=== PATIENT | female | born 1950 | race Caucasian/White ===

== ENCOUNTER 2017-08-01 11:53 | Emergency (ER) | payer BC ==
[2017-08-01 12:46] VITALS: BP 157/57
--- NOTE | 2017-08-01 13:36 | UC ---
Hand/Wrist HPI - HPI Summary HPI Summary: Fell off ladder last night and injured ivelisse hand- - History Of Current Complaint Chief Complaint: UCUpperExtremity Stated Complaint: RIGHT HAND INJURY/FALL Time Seen by Provider: 08/01/17 13:35 Hx Obtained From: Patient ?: No Mechanism Of Injury: fall Onset/Duration: Sudden Onset Severity Initially: Moderate Severity Currently: Moderate Pain Intensity: 5 Pain Scale Used: 0-10 Numeric Character Of Pain: Aching, Throbbing Aggravating Factor(s): Movement Alleviating Factor(s): Rest, Ice Associated Signs And Symptoms: Positive: Swelling, Bruising Related History: Dominant Hand Right - Allergies/Home Medications Allergies/Adverse Reactions: Allergies Allergy/AdvReac Type Severity Reaction Status Date / Time Morphine Allergy Unknown Unknown Verified 08/01/17 12:36 Reaction Details Sulfa Antibiotics Allergy Unknown Unknown Verified 08/01/17 12:36 Reaction Details Tetracycline Allergy Unknown Unknown Verified 08/01/17 12:36 Reaction Details Cephalexin Allergy Swelling Verified 08/01/17 12:37 Home Medications: Home Medications Ibuprofen TAB* [Advil TAB*] 800 mg PO Q6H PRN 08/01/17 [History Confirmed ] PMH/Surg Hx/FS Hx/Imm Hx Previously Healthy: No Cardiovascular History: Cardiac Disease, Hypertension - Surgical History Surgical History: Yes Surgery Procedure, Year, and Place: "some of intestines removed d/t blockage" - Family History Known Family History: Positive: None - Social History Occupation: Employed Full-time Lives: With Family Alcohol Use: Occasionally Substance Use Type: None Smoking Status (MU): Former Smoker Type: Cigarettes Have You Smoked in the Last Year: No When Did the Patient Quit Smoking/Using Tobacco: 15 yrs ago - Immunization History Most Recent Influenza Vaccination: no Review of Systems Constitutional: Negative Skin: Negative Eyes: Negative ENT: Negative Respiratory: Negative Cardiovascular: Negative Gastrointestinal: Negative Genitourinary: Negative Motor: Negative Neurovascular: Negative Musculoskeletal: Negative, Arthralgia - right hand, Edema - right hand with bruising Neurological: Negative Psychological: Negative Is Patient Immunocompromised?: No All Other Systems Reviewed And Are Negative: Yes Physical Exam Triage Information Reviewed: Yes Appearance: Well-Appearing, No Pain Distress - mild, Thin Vital Signs: Initial Vital Signs Temp 98.2 F 08/01/17 12:29 Pulse 67 08/01/17 12:29 Resp 16 08/01/17 12:29 BP 157/57 08/01/17 12:29 Pulse Ox 100 08/01/17 12:29 Vital Signs Reviewed: Yes Eye Exam: Normal Eyes: Positive: Conjunctiva Clear ENT Exam: Normal ENT: Positive: Normal ENT inspection, Hearing grossly normal. Negative: Nasal congestion, Nasal drainage, Trismus, Muffled/hoarse voice Dental Exam: Normal Neck exam: Normal Neck: Positive: Supple, Nontender Respiratory Exam: Normal Respiratory: Positive: Chest non-tender, No respiratory distress, No accessory muscle use Cardiovascular Exam: Normal Cardiovascular: Positive: RRR, Pulses Normal, Brisk Capillary Refill Musculoskeletal Exam: Other Musculoskeletal: Positive: Strength Intact, ROM Intact, Edema @ - back of right hand Neurological Exam: Normal Neurological: Positive: Alert, Muscle Tone Normal Psychological Exam: Normal Skin Exam: Normal Diagnostics - Radiology No standard instances Xray Interpretation: No Acute Changes Radiology Interpretation Completed By: Radiologist Hand/Wrist Course/Dx - Course Course Of Treatment: dhiraj wrap, cockup splint, ice ibuprofen follow with ortho prn - Differential Dx/Diagnosis Differential Diagnosis/HQI/PQRI: Contusion, Fracture Provider Diagnoses: Right hand contusion Discharge - Discharge Plan Condition: Stable Disposition: HOME Patient Education Materials: Contusion in Adults (ED), Hypertension (ED), Ice Pack Application (ED), Arthritis (ED) Forms: *Work Release Referrals: Luz Perez PA [Primary Care Provider] - If Needed
--- NOTE | 2017-08-01 14:20 | RAD ---
HISTORY: Fall on outstretched hand, right hand COMPARISONS: None VIEWS: 4, Frontal, lateral, and oblique views of the right hand FINDINGS: BONE DENSITY: There is diffuse osteopenia. BONES: There is no displaced fracture. JOINTS: There is osteoarthritis of the first CMC joint. ALIGNMENT: There is no dislocation. SOFT TISSUES: Unremarkable. OTHER FINDINGS: None. IMPRESSION: 1. OSTEOPENIA. 2. OSTEOARTHRITIS. 3. NO ACUTE OSSEOUS INJURY. IF SYMPTOMS PERSIST, RECOMMEND REPEAT IMAGING.
== END 2017-08-01 14:35 | disposition home or self-care (01) ==
LOC: UCCORT 11:53
DX: S60.221A Contusion of right hand, initial encounter (principal); I10 Essential (primary) hypertension; W11.XXXA Fall on and from ladder, initial encounter; Z87.891 Personal history of nicotine dependence; Z88.5 Allergy status to narcotic agent; Z88.2 Allergy status to sulfonamides; Z88.1 Allergy status to other antibiotic agents
CPT/HCPCS: 99213; G0463

== ENCOUNTER 2018-04-06 14:23 | Emergency (ER) | payer BC, OTHER ==
[2018-04-06 14:56] VITALS: BP 140/64
--- NOTE | 2018-04-06 15:17 | UC ---
General HPI - HPI Summary HPI Summary: Pleasant 68 yo female c/o R chest wall and R shoulder pain since yesterday, s/p trauma. She was moving a couch at work, the couched slipped and she ended up hitting her chest and shoulder against the top of the couch. Was able to finish the work day, but was in pain. Yesterday took both ibuprofen and naproxen, with some alleviation. Today she went to work, but was told by employer to get medical check before returning to work, since still c/o pain. Has been taking naproxen and ibuprofen today. Has been undergoing cardiopulmonary workup on outpt basis. Has been seen by physicians in [facility], and [facility]. Pain had been in L chest, but this is not the case now. Current pain is different than that for which she is undergoing w/u. Does not have that pain now or since injury yesterday. No rash. No GI concerns. No neck pain. No other site of injury. Denies kidney / renal problems or GI ulcers. - History of Current Complaint Chief Complaint: UCUpperExtremity Stated Complaint: WC-RT SHOULDER/CHEST INJURY Time Seen by Provider: 04/06/18 15:07 Hx Obtained From: Patient Pain Intensity: 0 - Allergy/Home Medications Allergies/Adverse Reactions: Allergies Allergy/AdvReac Type Severity Reaction Status Date / Time morphine Allergy Severe Swelling Verified 03/28/18 14:12 Of Face,Lips,& Throat Sulfa (Sulfonamide Allergy Severe Swelling Verified 03/28/18 14:12 Antibiotics) Of Face,Lips,& Throat Tetracyclines Allergy Severe Swelling Verified 03/28/18 14:12 Of Face,Lips,& Throat cephalexin [From Keflex] Allergy Unknown See Comment Verified 03/28/18 14:23 diclofenac Allergy Unknown Shortness Verified 03/28/18 14:23 of Breath meloxicam Allergy Unknown See Comment Verified 03/28/18 14:23 Influenza Virus Vaccines Allergy Anaphylatic Verified 04/06/18 14:51 Shock permethrin Allergy Hives Verified 03/28/18 14:23 PMH/Surg Hx/FS Hx/Imm Hx Cardiovascular History: Other - see hpi. Other Cardiovascular History: see above - Surgical History Surgical History: Yes Surgery Procedure, Year, and Place: COLON RESECTION. TUBAL LIGATION/ REMOVAL OF FALLOPIAN TUBES. BILATERAL CATARACTS. ANGIOGRAPHY - Family History Known Family History: Positive: None - Social History Alcohol Use: Occasionally Substance Use Type: None Smoking Status (MU): Former Smoker Type: Cigarettes Have You Smoked in the Last Year: No When Did the Patient Quit Smoking/Using Tobacco: 15 yrs ago - Immunization History Most Recent Influenza Vaccination: no Review of Systems Constitutional: Negative Skin: Negative - no report of external bruise Eyes: Negative ENT: Negative Respiratory: Other - see hpi Cardiovascular: Other - see hpi Gastrointestinal: Negative Genitourinary: Negative Motor: Other - see hpi Neurovascular: Negative Musculoskeletal: Arthralgia Neurological: Negative Psychological: Negative Is Patient Immunocompromised?: No All Other Systems Reviewed And Are Negative: Yes Physical Exam Triage Information Reviewed: Yes Appearance: Well-Appearing - sitting up in chair, nad. conversing in full sentances, Well-Nourished Vital Signs: Initial Vital Signs Temp 97.3 F 04/06/18 14:45 Pulse 75 04/06/18 14:45 Resp 19 04/06/18 14:45 BP 140/64 04/06/18 14:45 Pulse Ox 97 04/06/18 14:45 Vital Signs Reviewed: Yes Eye Exam: Normal - grossly normal ENT Exam: Normal Neck exam: Normal Neck: Positive: Supple, Nontender Respiratory Exam: Other - see muscleskel below Respiratory: Positive: Lungs clear, Normal breath sounds, No respiratory distress, No accessory muscle use Cardiovascular: Positive: RRR, Pulses Normal, Brisk Capillary Refill Abdominal Exam: Normal Abdomen Description: Positive: Nontender Musculoskeletal Exam: Other - Tender R ant lat chest wall and R post>ant shoulder. No point bony tenderness appreciate. Ant chest wall muscle (pect) tender. No tania eccymoses. No crepitus. FROM R shoulder, although hesitation with flex / adduction. Ax n sens present LT. Elbow / neck without complaints. Neurological Exam: Normal - grossly nonfocal Psychological Exam: Normal - conversing easily and appropriately Skin Exam: Normal - no visible or reported eccymosis or rash. Course/Dx - Course Course Of Treatment: Reviewed CXR / R shoulder Xray with pt. (results in [employer]). Reviewed coa / tx plan. Ms. Herbert is adamant that she does not have an allergy or problem with either naproxen or ibuprofen (I note "allergy" in [employer]); indeed she has been taking both since yesterday. Denies hx renal problems. Will f/u pcp, next week as planned (after pulm testing). Albeit reluctant, will take the next couple days off of work (which is strenuous). Declines sling. Questions as posed answered to the best of my ability. - Differential Dx - Multi-Symptom Provider Diagnoses: R chest wall and shoulder contusion. R shoulder sprain Discharge - Sign-Out/Discharge Documenting (check all that apply): Discharge/Admit/Transfer - Discharge Plan Condition: Stable Disposition: HOME Prescriptions: Naproxen [Naproxen 500 mg tab] 500 mg PO Q12H PRN #20 tablet.dr QUILES Reason: Pain Patient Education Materials: Sprain (ED), Rib Contusion (ED) Forms: *Work Release Referrals: uLz Perez PA [Primary Care Provider] - - Billing Disposition and Condition Condition: STABLE Disposition: Home
--- NOTE | 2018-04-06 16:06 | RAD ---
INDICATION: Chest pain COMPARISON: Chest x-ray September 10, 2017 TECHNIQUE: PA and lateral dual-energy views were obtained. FINDINGS: Bones/Soft Tissues: There is osteopenia with mild kyphoscoliosis. Cardiomediastinal: The cardiomediastinal silhouette is normal. Lungs: There are no infiltrates. Pleura: There are no pleural effusions. Other: None IMPRESSION: NO ACTIVE DISEASE.
--- NOTE | 2018-04-06 16:07 | RAD ---
Indication: RIGHT shoulder pain following injury. Comparison: No relevant prior exams available on the [facility] for comparison. Technique: Internal rotation AP, external rotation Grashey, scapular Y, moderate axillary views RIGHT shoulder Report: Normal acromioclavicular and glenohumeral joint alignment. Negative for fracture. No significant arthropathic change evident. Bone density appears decreased throughout. Unremarkable soft tissue contours. IMPRESSION: Negative for fracture or articular malalignment.
== END 2018-04-06 16:32 | disposition home or self-care (01) ==
LOC: UCCORT 14:23
DX: S20.211A Contusion of right front wall of thorax, initial encounter (principal); S40.011A Contusion of right shoulder, initial encounter; S43.401A Unspecified sprain of right shoulder joint, initial encounter; Z88.5 Allergy status to narcotic agent; Z88.2 Allergy status to sulfonamides; Z88.1 Allergy status to other antibiotic agents; Z88.7 Allergy status to serum and vaccine; Z88.8 Allergy status to other drugs, medicaments and biological substances; Z87.891 Personal history of nicotine dependence; W01.190A Fall on same level from slipping, tripping and stumbling with subsequent striking against furniture, initial encounter; Y92.9 Unspecified place or not applicable
CPT/HCPCS: 71046; 99212; G0463

== ENCOUNTER 2019-03-07 12:49 | Emergency (ER) | payer BC ==
[2019-03-07 13:14] VITALS: BP 160/80
--- NOTE | 2019-03-07 13:48 | UC ---
Respiratory Complaint HPI - HPI Summary HPI Summary: cough x 3 weeks cough is productive with yellow sputum chest congestion , pnd, worse with deep breathing, better with rest, no fever, + chills, + sob , no chest pain ,no palpitation - History of Current Complaint Chief Complaint: UCRespiratory Stated Complaint: SOB Time Seen by Provider: 03/07/19 13:07 Hx Obtained From: Patient Onset/Duration: Gradual Onset, Lasting Weeks - 3, Still Present Timing: Constant Severity Initially: Moderate Severity Currently: Moderate Pain Intensity: 6 Character: Cough: Productive Aggravating Factors: Exertion, Deep Breaths Alleviating Factors: Bronchodilator Associated Signs And Symptoms: Positive: Dyspnea, Wheezing, URI, Nasal Congestion. Negative: Fever, Chills, Pleuritic Chest Pain, Hemoptysis - Allergies/Home Medications Allergies/Adverse Reactions: Allergies Allergy/AdvReac Type Severity Reaction Status Date / Time morphine Allergy Severe Swelling Verified 03/07/19 13:13 Of Face,Lips,& Throat Sulfa (Sulfonamide Allergy Severe Swelling Verified 03/07/19 13:13 Antibiotics) Of Face,Lips,& Throat Tetracyclines Allergy Severe Swelling Verified 03/07/19 13:13 Of Face,Lips,& Throat cephalexin [From Keflex] Allergy Unknown See Comment Verified 03/07/19 13:13 diclofenac Allergy Unknown Shortness Verified 03/07/19 13:13 of Breath meloxicam Allergy Unknown See Comment Verified 03/07/19 13:13 Influenza Virus Vaccines Allergy Anaphylatic Verified 03/07/19 13:13 Shock permethrin Allergy Hives Verified 03/07/19 13:13 Home Medications: Home Medications Escitalopram * [Lexapro *] 5 mg PO DAILY 03/07/19 [History Confirmed 03/07/19] PMH/Surg Hx/FS Hx/Imm Hx - Additional Past Medical History Additional PMH: alpha 1 deficiency stroke Cardiovascular History: Cardiac Disease Respiratory History: COPD, Asthma Neurological History: CVA - Surgical History Surgical History: Yes Surgery Procedure, Year, and Place: COLON RESECTION. TUBAL LIGATION/ REMOVAL OF FALLOPIAN TUBES. BILATERAL CATARACTS. ANGIOGRAPHY - Family History Known Family History: Positive: None - Social History Alcohol Use: Occasionally Substance Use Type: None Smoking Status (MU): Former Smoker Type: Cigarettes Have You Smoked in the Last Year: No When Did the Patient Quit Smoking/Using Tobacco: 15 yrs ago - Immunization History Most Recent Influenza Vaccination: no Review of Systems All Other Systems Reviewed And Are Negative: Yes Constitutional: Positive: Fatigue Skin: Positive: Negative Eyes: Positive: Negative ENT: Positive: Nasal Discharge Respiratory: Positive: Shortness Of Breath, Cough Cardiovascular: Positive: Negative Gastrointestinal: Positive: Negative Is Patient Immunocompromised?: No Physical Exam Triage Information Reviewed: Yes Appearance: Well-Appearing, No Pain Distress, Well-Nourished Vital Signs: Initial Vital Signs Temp 98.1 F 03/07/19 13:09 Pulse 64 03/07/19 13:09 Resp 20 03/07/19 13:09 BP 160/80 03/07/19 13:09 Pulse Ox 100 03/07/19 13:09 Vital Signs Reviewed: Yes Eye Exam: Normal Eyes: Positive: Conjunctiva Clear ENT: Positive: Normal ENT inspection, Hearing grossly normal, Pharynx normal, Nasal congestion Neck: Positive: Supple, Nontender, No Lymphadenopathy Respiratory: Positive: Chest non-tender, Lungs clear, Normal breath sounds, No respiratory distress Cardiovascular: Positive: RRR, No Murmur, Pulses Normal Abdominal Exam: Normal Skin Exam: Normal Diagnostics - Radiology No standard instances Radiology Interpretation Completed By: Radiologist Summary of Radiographic Findings: chest xray : IMPRESSION: NO ACTIVE CARDIOPULMONARY DISEASE. Respiratory Course/Dx - Differential Dx/Diagnosis Provider Diagnosis: Acute bronchitis Discharge - Sign-Out/Discharge Documenting (check all that apply): Patient Departure All imaging exams completed and their final reports reviewed: Yes - Discharge Plan Condition: Stable Disposition: HOME Prescriptions: Amoxicillin/Clavulanate TAB* [Augmentin TAB 875*] 875 mg PO BID #20 tab predniSONE TAB* [Deltasone 20 MG TAB*] 40 mg PO DAILY #10 tab Patient Education Materials: Acute Bronchitis (ED) Referrals: Luz Perez PA [Primary Care Provider] - - Billing Disposition and Condition Condition: STABLE Disposition: Home
== END 2019-03-07 13:50 | disposition home or self-care (01) ==
LOC: UCCORT 12:49
DX: J20.9 Acute bronchitis, unspecified (principal); E88.01 Alpha-1-antitrypsin deficiency; I51.9 Heart disease, unspecified; J44.9 Chronic obstructive pulmonary disease, unspecified; Z88.5 Allergy status to narcotic agent; Z88.2 Allergy status to sulfonamides; Z88.1 Allergy status to other antibiotic agents; Z88.8 Allergy status to other drugs, medicaments and biological substances; Z87.891 Personal history of nicotine dependence; Z86.73 Personal history of transient ischemic attack (TIA), and cerebral infarction without residual deficits
CPT/HCPCS: 71046; 99212; G0463

== ENCOUNTER 2019-04-23 12:31 | Emergency (ER) | payer BC ==
[2019-04-23 14:14] VITALS: BP 146/73
--- NOTE | 2019-04-23 14:15 | UC ---
General HPI - HPI Summary HPI Summary: pt states she fell down her 3 basement steps. she is c/o pain to her L shoulder and upper arm where she hit the wall and L ankle. no loc, head injury, neck or back pain. she denies any other injuries. - History of Current Complaint Stated Complaint: LEFT ANKLE/SHOULDER INJ Time Seen by Provider: 04/23/19 14:01 Hx Obtained From: Patient Onset/Duration: Sudden Onset Timing: Constant - Allergy/Home Medications Allergies/Adverse Reactions: Allergies Allergy/AdvReac Type Severity Reaction Status Date / Time morphine Allergy Severe Swelling Verified 04/23/19 14:14 Of Face,Lips,& Throat Sulfa (Sulfonamide Allergy Severe Swelling Verified 04/23/19 14:14 Antibiotics) Of Face,Lips,& Throat Tetracyclines Allergy Severe Swelling Verified 04/23/19 14:14 Of Face,Lips,& Throat cephalexin [From Keflex] Allergy Unknown See Comment Verified 04/23/19 14:14 diclofenac Allergy Unknown Shortness Verified 04/23/19 14:14 of Breath meloxicam Allergy Unknown See Comment Verified 04/23/19 14:14 Influenza Virus Vaccines Allergy Anaphylatic Verified 04/23/19 14:14 Shock permethrin Allergy Hives Verified 04/23/19 14:14 Home Medications: Home Medications Umeclidin/Vilant 62.5 MDI(NF) [ANORO 62.5/25 Ellipta DEVICE (NF)] 1 inh INH DAILY 04/23/19 [History Confirmed 04/23/19] PMH/Surg Hx/FS Hx/Imm Hx - Additional Past Medical History Additional PMH: anemia Cardiovascular History: Congestive Heart Failure Respiratory History: COPD Psychological History: Depression - Surgical History Surgical History: Yes Surgery Procedure, Year, and Place: COLON RESECTION. TUBAL LIGATION/ REMOVAL OF FALLOPIAN TUBES. BILATERAL CATARACTS. ANGIOGRAPHY - Family History Known Family History: Positive: None - Social History Alcohol Use: Occasionally Substance Use Type: None Smoking Status (MU): Former Smoker Type: Cigarettes Have You Smoked in the Last Year: No When Did the Patient Quit Smoking/Using Tobacco: 15 yrs ago - Immunization History Most Recent Influenza Vaccination: no Review of Systems All Other Systems Reviewed And Are Negative: No Skin: Negative: Rash Gastrointestinal: Negative: Vomiting, Nausea Neurological: Negative: Headache, Weakness, Paresthesia, Numbness Physical Exam Triage Information Reviewed: Yes Appearance: Well-Appearing Vital Signs Reviewed: Yes Eyes: Positive: Conjunctiva Clear Neck: Positive: Supple, Nontender, No Lymphadenopathy, Other: - c-spine is non tender. Respiratory: Positive: No respiratory distress Cardiovascular: Positive: RRR Musculoskeletal: Positive: Other: - LUE: no gross deformity or swelling. tender to palpation over top of shoulder and lateral upper arm. pt demonstrates active rom at shoulder before being asked. rest of arm is non tender and has gross s/v/ m function. LLE: hip, knee and achilles are non tender and rom intact. lateral ankle with swelling and tenderness. Foot non tender and has gross s/v/m function. Neurological: Positive: Alert Psychological: Positive: Age Appropriate Behavior Skin Exam: Normal Diagnostics - Radiology No standard instances Radiology Interpretation Completed By: Radiologist - IMPRESSION: Soft tissue swelling. No fracture of the ankle is noted.IMPRESSION: No fracture of the left forearm is noted.IMPRESSION: No fracture of the left shoulder is present. Course/Dx - Differential Dx - Multi-Symptom Differential Diagnoses: Other - no fx's on xray. - Diagnoses Provider Diagnosis: Contusion of left shoulder, Contusion of left upper arm, Sprain of left ankle Discharge - Sign-Out/Discharge Documenting (check all that apply): Patient Departure All imaging exams completed and their final reports reviewed: Yes - Discharge Plan Condition: Stable Disposition: HOME Patient Education Materials: Ankle Sprain (ED), Contusion in Adults (ED) Referrals: Luz Perez PA [Primary Care Provider] - 5 Days - Billing Disposition and Condition Condition: STABLE Disposition: Home
== END 2019-04-23 15:46 | disposition home or self-care (01) ==
LOC: UCCORT 12:31
DX: S93.402A Sprain of unspecified ligament of left ankle, initial encounter (principal); S40.012A Contusion of left shoulder, initial encounter; S40.022A Contusion of left upper arm, initial encounter; W10.9XXA Fall (on) (from) unspecified stairs and steps, initial encounter; Y92.008 Other place in unspecified non-institutional (private) residence as the place of occurrence of the external cause; Z88.5 Allergy status to narcotic agent; J44.9 Chronic obstructive pulmonary disease, unspecified; Z87.891 Personal history of nicotine dependence
CPT/HCPCS: 99213; G0463

== ENCOUNTER 2019-10-23 12:53 | Emergency (ER) | payer BC, OTHER ==
[2019-10-23 14:03] VITALS: BP 122/52
--- NOTE | 2019-10-23 14:28 | UC ---
Respiratory Complaint HPI - HPI Summary HPI Summary: Pt presents with c/o cough, chest congestion, and "burning in lungs" when she coughs X 3 weeks. - History of Current Complaint Chief Complaint: UCGeneralIllness Stated Complaint: CHEST CONGESTION Time Seen by Provider: 10/23/19 13:58 Hx Obtained From: Patient ?: No Onset/Duration: Gradual Onset, Lasting Weeks - 3 weeks Timing: Constant Severity Initially: Mild Severity Currently: Moderate Pain Intensity: 0 Character: Cough: Productive Aggravating Factors: Deep Breaths, Recumbent Position Alleviating Factors: Nothing Associated Signs And Symptoms: Positive: URI, Nasal Congestion - Risk Factors Pulmonary Embolism Risk Factors: Negative Cardiac Risk Factors: Hypertension Pseudomonas Risk Factors: Chronic Lung Disease Tuberculosis Risk Factors: Negative - Allergies/Home Medications Allergies/Adverse Reactions: Allergies Allergy/AdvReac Type Severity Reaction Status Date / Time morphine Allergy Severe Swelling Verified 10/23/19 14:04 Of Face,Lips,& Throat Sulfa (Sulfonamide Allergy Severe Swelling Verified 10/23/19 14:04 Antibiotics) Of Face,Lips,& Throat Tetracyclines Allergy Severe Swelling Verified 10/23/19 14:04 Of Face,Lips,& Throat cephalexin [From Keflex] Allergy Unknown See Comment Verified 10/23/19 14:04 diclofenac Allergy Unknown Shortness Verified 10/23/19 14:04 of Breath meloxicam Allergy Unknown See Comment Verified 10/23/19 14:04 Influenza Virus Vaccines Allergy Anaphylatic Verified 10/23/19 14:04 Shock permethrin Allergy Hives Verified 10/23/19 14:04 Home Medications: Home Medications Cortia PO DAILY 10/23/19 [History] PMH/Surg Hx/FS Hx/Imm Hx Previously Healthy: Yes Cardiovascular History: Cardiac Disease, Hypertension Respiratory History: COPD - Surgical History Surgical History: Yes Surgery Procedure, Year, and Place: COLON RESECTION. TUBAL LIGATION/ REMOVAL OF FALLOPIAN TUBES. BILATERAL CATARACTS. ANGIOGRAPHY - Family History Known Family History: Positive: Cardiac Disease - Social History Occupation: Employed Full-time Lives: With Family Alcohol Use: Occasionally Substance Use Type: None Smoking Status (MU): Former Smoker Type: Cigarettes Have You Smoked in the Last Year: No When Did the Patient Quit Smoking/Using Tobacco: 15 yrs ago - Immunization History Most Recent Influenza Vaccination: no Review of Systems All Other Systems Reviewed And Are Negative: Yes Constitutional: Positive: Fatigue Skin: Positive: Negative Eyes: Positive: Negative ENT: Positive: Sinus Congestion Respiratory: Positive: Shortness Of Breath, Cough Cardiovascular: Positive: Negative Gastrointestinal: Positive: Negative Genitourinary: Positive: Negative Motor: Positive: Negative Neurovascular: Positive: Negative Musculoskeletal: Positive: Negative Neurological: Positive: Negative Psychological: Positive: Negative Is Patient Immunocompromised?: No Physical Exam Triage Information Reviewed: Yes Appearance: Ill-Appearing Vital Signs: Initial Vital Signs Temp 98.3 F 10/23/19 13:58 Pulse 72 10/23/19 13:58 Resp 18 10/23/19 13:58 BP 122/52 10/23/19 13:58 Pulse Ox 93 10/23/19 13:58 Vital Signs Reviewed: Yes Eye Exam: Normal ENT: Positive: Nasal congestion Dental Exam: Normal Neck exam: Normal Respiratory: Positive: Decreased breath sounds Cardiovascular Exam: Normal Musculoskeletal Exam: Normal Neurological Exam: Normal Psychological Exam: Normal Skin Exam: Normal Respiratory Course/Dx - Differential Dx/Diagnosis Differential Diagnosis/HQI/PQRI: Bronchitis, Exacerbation Of COPD, Lower Resp Infection Provider Diagnosis: Lower respiratory infection Discharge ED - Sign-Out/Discharge Documenting (check all that apply): Patient Departure All imaging exams completed and their final reports reviewed: No Studies - Discharge Plan Condition: Stable Disposition: HOME Prescriptions: Azithromycin TAB* [Zithromax TAB (Z-SAYRA) 250 mg #6 tabs] 2 tab PO .TODAY, THEN 1 DAILY #1 sayra predniSONE TAB* [Deltasone 10 MG TAB*] 30 mg PO DAILY #12 tab Patient Education Materials: Pneumonia (ED) Referrals: Luz Perez PA [Primary Care Provider] - If Needed Additional Instructions: Please follow up with your PCP as needed. - Billing Disposition and Condition Condition: STABLE Disposition: Home
== END 2019-10-23 14:37 | disposition home or self-care (01) ==
LOC: UCCORT 12:53
DX: J22 Unspecified acute lower respiratory infection (principal); R53.83 Other fatigue; I10 Essential (primary) hypertension; J44.9 Chronic obstructive pulmonary disease, unspecified; Z87.891 Personal history of nicotine dependence; Z88.8 Allergy status to other drugs, medicaments and biological substances; Z88.7 Allergy status to serum and vaccine; Z88.1 Allergy status to other antibiotic agents; Z88.5 Allergy status to narcotic agent; Z88.2 Allergy status to sulfonamides
CPT/HCPCS: 99212; G0463

== ENCOUNTER 2019-12-05 13:08 | Emergency (ER) | payer BC ==
[2019-12-05 15:08] LABS: Influenza A Molecular Negative (Negative); Influenza B Molecular Negative (Negative)
[2019-12-05] MEDS ORDERED: Albuterol/Ipratropium NEB.SOL* Albuterol 2.5 MG/Ipratropium 0.5 MG 3 ML INH ONE (15:09)
--- NOTE | 2019-12-05 15:20 | UC ---
General HPI - HPI Summary HPI Summary: Pleasant 69 yo female c/o cough, fever, congestion sx started middle of the night wednesday night (today is Wednesday). No rash. Some ear and left gland pain No GI issues. no palpitations. Does occasionally have chest pain, for which she takes ntg, but that has not changed, and has not had new discomfort. + green sputum production. - History of Current Complaint Chief Complaint: UCGeneralIllness Stated Complaint: CHEST COLD Time Seen by Provider: 12/05/19 14:41 Hx Obtained From: Patient Pain Intensity: 8 - Allergy/Home Medications Allergies/Adverse Reactions: Allergies Allergy/AdvReac Type Severity Reaction Status Date / Time morphine Allergy Severe Swelling Verified 12/05/19 14:45 Of Face,Lips,& Throat Sulfa (Sulfonamide Allergy Severe Swelling Verified 12/05/19 14:45 Antibiotics) Of Face,Lips,& Throat Tetracyclines Allergy Severe Swelling Verified 12/05/19 14:45 Of Face,Lips,& Throat cephalexin [From Keflex] Allergy Unknown See Comment Verified 12/05/19 14:45 diclofenac Allergy Unknown Shortness Verified 12/05/19 14:45 of Breath meloxicam Allergy Unknown See Comment Verified 12/05/19 14:45 Influenza Virus Vaccines Allergy Anaphylatic Verified 12/05/19 14:45 Shock permethrin Allergy Hives Verified 12/05/19 14:45 Home Medications: Home Medications Diltiazem TAB* [Cardizem 60 MG Tab*] 120 mg PO DAILY 12/05/19 [History Confirmed 12/05/19] Nitroglycerin TAB 0.4 MG* 0.4 mg SL Q5M PRN 12/05/19 [History Confirmed 12/05/19 ] PMH/Surg Hx/FS Hx/Imm Hx Previously Healthy: No - see pmh. also has a heart murmur, which is being w/u - Surgical History Surgical History: Yes Surgery Procedure, Year, and Place: COLON RESECTION. TUBAL LIGATION/ REMOVAL OF FALLOPIAN TUBES. BILATERAL CATARACTS. ANGIOGRAPHY - Family History Known Family History: Positive: None, Cardiac Disease - Social History Alcohol Use: None Substance Use Type: None Smoking Status (MU): Former Smoker Type: Cigarettes Have You Smoked in the Last Year: No When Did the Patient Quit Smoking/Using Tobacco: 2004 - Immunization History Most Recent Influenza Vaccination: no Review of Systems All Other Systems Reviewed And Are Negative: Yes Constitutional: Positive: Fever, Chills, Fatigue Skin: Positive: Negative Eyes: Positive: Other - watery eyes ENT: Positive: Ear Ache, Nasal Discharge, Sinus Congestion, Sinus Pain/ Tenderness Respiratory: Positive: Cough Cardiovascular: Positive: Other - see hpi Gastrointestinal: Positive: Negative Genitourinary: Positive: Negative Motor: Positive: Negative Neurovascular: Positive: Negative Musculoskeletal: Positive: Other: - achy Neurological/Mental Status: Positive: Negative - see hpi Psychological: Positive: Negative Is Patient Immunocompromised?: No Physical Exam Triage Information Reviewed: Yes Appearance: Thin - sitting up, conversing full sentances, looks tired but nad Vital Signs: Initial Vital Signs Temp 99.8 F 12/05/19 14:47 Pulse 70 12/05/19 14:47 Resp 14 12/05/19 14:47 BP 136/61 12/05/19 14:47 Pulse Ox 99 12/05/19 14:47 Vital Signs Reviewed: Yes Eye Exam: Other - mildly scl injected ou. + watery. o/w ok. ENT: Positive: Pharyngeal erythema - mild redness, Nasal congestion, Nasal drainage, Other - EAC's + cerumen obst Neck: Positive: Supple, Nontender Respiratory Exam: Other - + insp and exp wheeze and rhonci no distress BS equal Respiratory: Positive: No respiratory distress, No accessory muscle use Cardiovascular Exam: Other - + syst murmur HR regular correlates with R rad pulse Abdominal Exam: Normal Abdomen Description: Positive: Nontender Musculoskeletal Exam: Other - + evidence venous insuff and hemosiderosis, mild edema, warm to touch. Neurological Exam: Normal - grossly nonfocal Psychological Exam: Normal - nad Skin Exam: Normal - no visual or reported rash nondiaphoretic Course/Dx - Course Course Of Treatment: Duoneb x 1 feels better, has a nebulizer at home, but forgot about it. will start again. Reviewed cxr report with pt. Tanvi espinoza per rn au. - Did not tolerate, but I was able to recheck the L ear -> Teed 3+ Barotrauma likely d/t cough Influenza a/b neg reviewed coa / tx plan. questions as posed answered to the best of my ability. aware to go to the ED if worse / new symptoms. other - considered cardiac etiology. but sx are highly c/w pulmonary source. She specifically denies change in baseline angina, and reports that her sx are similar to prior pulm issues. Will c/t f/u pcp. I spoke with Luz PRICE via telephone. Her office will contact Ms. Herbert for f/u 1-2 days. - Diagnoses Provider Diagnosis: Pneumonia, Barotrauma Discharge ED - Sign-Out/Discharge Documenting (check all that apply): Patient Departure All imaging exams completed and their final reports reviewed: Yes - Discharge Plan Condition: Improved Disposition: HOME Prescriptions: Albuterol HFA INHALER* [Ventolin HFA Inhaler*] 1 - 2 puff INH Q4H PRN #1 mdi PRN Reason: Wheezing Amoxicillin/Clavulanate TAB* [Augmentin TAB 875*] 875 mg PO BID #20 tab predniSONE 10 mg TAB [Deltasone 10 MG TAB*] 10 mg PO DAILY #20 tab Patient Education Materials: Cerumen Impaction (ED), Barotitis Media (ED), Pneumonia (ED), Wheezing (ED) Forms: *Work Release Referrals: Luz Perez PA [Primary Care Provider] - Additional Instructions: Please go to the Emergency Department if ANY worse or new issues. Follow up with your primary care provider, ALBERT Cartagena - you will need to see her tomorrow or the next day for follow up. - Billing Disposition and Condition Condition: IMPROVED Disposition: Home
[2019-12-05 16:54] VITALS: BP 155/56
== END 2019-12-05 16:53 | disposition home or self-care (01) ==
LOC: UCCORT 13:08
DX: J18.9 Pneumonia, unspecified organism (principal); T70.29XA Other effects of high altitude, initial encounter; J34.89 Other specified disorders of nose and nasal sinuses; X58.XXXA Exposure to other specified factors, initial encounter; Z88.5 Allergy status to narcotic agent; Z88.2 Allergy status to sulfonamides; Z88.1 Allergy status to other antibiotic agents; Z88.6 Allergy status to analgesic agent; Z88.7 Allergy status to serum and vaccine; Z88.8 Allergy status to other drugs, medicaments and biological substances; Z87.891 Personal history of nicotine dependence
CPT/HCPCS: 71046; 99212; A9270-GY; G0463